=== PATIENT | female | born 1950 | race Caucasian/White ===

== ENCOUNTER 2023-02-02 08:57 | Outpatient (CLI) | payer MEDICARE, BC, SELFPAY | END 2023-02-02 08:58 | disposition home or self-care (01) | LOC: NFLDREF 02-04 06:41 | PROVIDERS: Visit Provider Nurse Practitioner Family | DX: R30.0 Dysuria (principal); N30.01 Acute cystitis with hematuria | CPT/HCPCS: 87086 ==

== ENCOUNTER 2024-12-19 07:07 | Outpatient (CLI) | payer MEDICARE, BC, SELFPAY ==
--- NOTE | 2024-12-19 08:24 | P.ANES_ITS ---
Anesthesia Charges Start Date/Time Anesthesia Start Date: 12/19/24 Anesthesia Start Time: 08:01 Stop Date/Time Anesthesia Stop Date: 12/19/24 Anesthesia Stop Time: 08:22 Summary Extremes of Age - Over 70 or under 1: RURAL SOCIOLOGIST Coding CPT Codes CPT Codes: QUOC LWR INTST NDSC NOS - [id number] ([id number]) P2 - PATIENT W/MILD SYST DISEASE, QK - HOME CARE COORDINATOR 2-4 CNCRNT ANEBerry PROC, QX - RURAL SOCIOLOGIST SVC W/ MD MED DIRECTION Additional Codes: Summary - Extremes of Age - Over 70 or under 1: RURAL SOCIOLOGIST ([id number])
--- NOTE | 2024-12-19 08:24 | W.ANESCHARGE ---
Anesthesia Charges Start Date/Time Anesthesia Start Date: 12/19/24 Anesthesia Start Time: 08:01 Stop Date/Time Anesthesia Stop Date: 12/19/24 Anesthesia Stop Time: 08:22 Summary Extremes of Age - Over 70 or under 1: FOUNTAIN ATTENDANT Coding CPT Codes CPT Codes: QUOC LWR INTST NDSC NOS - [id number] ([id number]) P2 - PATIENT W/MILD SYST DISEASE, QK - WEB MARKETING STRATEGIST 2-4 CNCRNT ANEBerry PROC, QX - FOUNTAIN ATTENDANT SVC W/ MD MED DIRECTION Additional Codes: Summary - Extremes of Age - Over 70 or under 1: FOUNTAIN ATTENDANT ([id number])
--- NOTE | 2024-12-19 09:21 | P.ANES_ITS ---
Anesthesia Charges Start Date/Time Anesthesia Start Date: 12/19/24 Anesthesia Start Time: 08:01 Stop Date/Time Anesthesia Stop Date: 12/19/24 Anesthesia Stop Time: 08:22 Summary Extremes of Age - Over 70 or under 1: MDA Coding CPT Codes CPT Codes: ANES LWR INTST NDSC NOS - [id number] ([id number]) P2 - PATIENT W/MILD SYST DISEASE, QK - DENTAL EQUIPMENT MECHANIC 2-4 CNCRNT ANES PROC, QX - SIDING STAPLER SVC W/ MD MED DIRECTION Additional Codes: Summary - Extremes of Age - Over 70 or under 1: EMANUEL ([id number])
--- NOTE | 2024-12-19 09:21 | W.ANESCHARGE ---
Anesthesia Charges Start Date/Time Anesthesia Start Date: 12/19/24 Anesthesia Start Time: 08:01 Stop Date/Time Anesthesia Stop Date: 12/19/24 Anesthesia Stop Time: 08:22 Summary Extremes of Age - Over 70 or under 1: MDA Coding CPT Codes CPT Codes: ANES LWR INTST NDSC NOS - [id number] ([id number]) P2 - PATIENT W/MILD SYST DISEASE, QK - CHEMICAL LABORATORY ASSISTANT 2-4 CNCRNT ANES PROC, QX - CRANKSHAFT STRAIGHTENER SVC W/ MD MED DIRECTION Additional Codes: Summary - Extremes of Age - Over 70 or under 1: EMANUEL ([id number])
== END 2024-12-19 07:08 | disposition home or self-care (01) ==
LOC: OP CLINIC 07:11
PROVIDERS: PCP Family Medicine; Visit Provider Internal Medicine Gastroenterology
DX: Z12.11 Encounter for screening for malignant neoplasm of colon (principal); Z86.0101 Personal history of adenomatous and serrated colon polyps; D12.0 Benign neoplasm of cecum
CPT/HCPCS: 00811; 45385; 88305; 99100; J2704